=== PATIENT | female | born 1995 | race Two or more races ===

== ENCOUNTER 2019-07-18 12:22 | Emergency (ER) | payer SELFPAY ==
[~2019-07-18] VITALS: Ht 175.3 cm; Wt 108.9 kg
[2019-07-18 12:59] LABS: Basophils # (auto) 0.1 uL; Basophils % (auto) 0.9 % (0.0-2.0); Eosinophils # (auto) 0.5 uL; Eosinophils % (auto) 5.6 % (0.0-7.0); Hematocrit 39.6 % (36.0-46.0); Lymphocytes # (auto) 2.6 uL; Mean Corpuscular Hemoglobin 27.9 pg (28.0-32.0); Mean Corpuscular Hgb Conc. 32.8 g/dL (32.0-36.0); Monocytes # (auto) 0.6 uL; Monocytes % (auto) 7.1 % (0.0-12.0); Neutrophils # (auto) 5.1 uL; Neutrophils % (auto) 57.4 % (37.0-80.0); Platelet Count (auto) 335 10^3/uL (140-450); Red Blood Cells 4.66 10^6/uL (4.0-5.20); White Blood Cell 8.9 10^3/uL (4.4-10.8)
[2019-07-18 13:25] LABS: Alanine Aminotransferase 31 U/L (13-56); Albumin 3.9 g/dL (3.4-5.0); Anion Gap 5 (5-15); Aspartate Aminotransferase 16 U/L (15-37); BUN/Creatinine Ratio 15.9; Blood Urea Nitrogen 10 mg/dL (7-18); Calcium 8.7 mg/dL (8.5-10.1); Carbon Dioxide 26 mmol/L (21-32); Chloride 109 mmol/L (98-107); GFR African American 148 mL/min; GFR Non-African American 122 mL/min; Glucose 98 mg/dL (74-106); Potassium 3.9 mmol/L (3.5-5.1); Sodium 140 mmol/L (136-145)
[2019-07-18 13:30] LABS: Alkaline Phosphatase 100 U/L (45-117); Bilirubin, Total 0.2 mg/dL (0.2-1.0); Total Protein 8.4 g/dL (6.4-8.2)
[2019-07-18 15:35] LABS: INR < 0.93 (0.9-1.15); Partial Thromboplastin Time 28.7 sec (23.64-32.05)
[2019-07-18 15:45] LABS: Urine Bacteria FEW /hpf (None Seen); Urine Blood Negative /uL (Negative); Urine Hyaline Cast FEW /lpf (0 - 2); Urine Specific Gravity 1.017 (1.001-1.035); Urine WBC 3 /hpf (0 - 5)
[2019-07-18 16:05] LABS: Alcohol, Urine < 3.0 mg/dL (0-5); Amphetamine Screen, Urine NEGATIVE (NEGATIVE); Barbiturate Scree,Urine NEGATIVE (NEGATIVE); Benzodiazephine Screen, Urine NEGATIVE (NEGATIVE); Cannabinoid Screen, Urine POSITIVE (NEGATIVE); Cocaine Screen, Urine NEGATIVE (NEGATIVE); Opiate Scree,Urine NEGATIVE (NEGATIVE); Phencyclidine Screen, Urine NEGATIVE (NEGATIVE)
[2019-07-18 16:42] VITALS: BP 110/63
== END 2019-07-18 18:22 | disposition home or self-care (01) ==
LOC: ER 12:24
DX: R07.89 Other chest pain (principal); N39.0 Urinary tract infection, site not specified; F17.210 Nicotine dependence, cigarettes, uncomplicated; F12.10 Cannabis abuse, uncomplicated
CPT/HCPCS: 36415; 71046; 80053; 80307; 81001; 84484; 85025; 85379; 85610; 85730; 94761